=== PATIENT | female | born 1965 | race Caucasian/White ===

== ENCOUNTER → 2025-04-24 | Outpatient (CLI) | payer MEDICAID, SELFPAY ==
--- NOTE | 2025-04-24 | XR_ITS ---
Examination: Knee, right , 3 views Technique: Knee AP, lateral, oblique 3 views Date and time of exam: April 24, 2025, 0751 hours INDICATIONS: Patient fell 2 weeks ago with injury to the knee, knee pain. FINDINGS: Total knee arthroplasty. Satisfactory alignment. No acute fracture IMPRESSION: No acute fracture
--- NOTE | 2025-04-24 | XR_ITS ---
Examination: Sacrum and coccyx 3 views TECHNIQUE: AP, inclined AP, lateral sacrococcyx 3 views Date and time: April 28, 2025, 0753 hours INDICATIONS: Patient fell 2 weeks ago with injury to the sacrum, sacral pain. FINDINGS: Prominent osteopenia. Satisfactory alignment sacrococcygeal segments. No acute fracture IMPRESSION: No acute fracture
== END | disposition home or self-care (01) ==
LOC: CDIM 07:07
PROVIDERS: PCP Nurse Practitioner Family; Referring Provider Nurse Practitioner Family; Visit Provider Nurse Practitioner Family
DX: S89.91XA Unspecified injury of right lower leg, initial encounter (principal); S39.92XA Unspecified injury of lower back, initial encounter; W01.0XXA Fall on same level from slipping, tripping and stumbling without subsequent striking against object, initial encounter
CPT/HCPCS: 72220; 73562

== ENCOUNTER 2025-06-03 11:02 | Emergency (ER) | payer MEDICAID, SELFPAY ==
[2025-06-03 11:46] VITALS: BP 136/85; PULSE 101; RESP 18; TEMP 36.7; O2SAT 99; BMI 21.4
--- NOTE | 2025-06-03 11:49 | XR_ITS ---
Examination: Foot, right, 3 views Technique: AP, oblique, lateral views foot, 3 views Date and time of exam: 06/03/2025, 12:11 p.m. INDICATION: Right foot pain for 1 day after impacted by concrete block COMPARISON: None FINDINGS: Acute nondisplaced fracture of the distal metadiaphysis of the first metatarsal is present. No apparent fracture elsewhere. Normal variant bipartite medial sesamoid bone subjacent to the first metatarsal head. No dislocation. Mild hallux valgus. Otherwise, no significant degenerative changes. 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 Forefoot soft tissue swelling. No radiodense foreign body. IMPRESSION: Acute nondisplaced fracture of the first metatarsal as described.
--- NOTE | 2025-06-03 12:43 | EDNOTE_ITS ---
<Statement entered by Karla Agarwal MD - 06/04/25 09:35> As co-signing physician, I was present and available for consult prn. I concur with the plan and care as documented by the midlevel provider. Lower Extremity Injury RME/HPI General Chief Complaint: Ankle/Foot Injury Stated Complaint: INJURY R) FOOT Time Seen by Provider: 06/03/25 11:26 Arrival date/time: 06/03/25 11:02 60-year-old female presents to the Emergency Department today stating that she dropped something heavy on the top of her right foot yesterday Limitations: no limitations Related Data Home Medications ?Medication ?Instructions ?Recorded ?Confirmed Levothyroxine * (SYNTHROID *) 100 mcg PO ACBR #0 tabs 01/29/16 gabapentin 600 mg tablet 600 mg PO BID ##0 02/14/17 (Neurontin) Buspirone * (BUSPAR *) 10 mg PO HS #0 tabs 08/10/17 albuterol sulfate 90 mcg/actuation 2 puff inhalation Q 6HR PRN 08/10/17 aerosol inhaler (Proventil HFA) WHEEZING #0 inhalation s Previous Rx's ?Medication ?Instructions ?Recorded hydrocodone 5 mg-acetaminophen 325 1 tab PO BID PRN pa in #10 tabs 06/03/25 mg tablet ibuprofen 600 mg tablet 600 mg PO Q6H #30 tabs 06/03 Allergies Allergy/AdvReac Type Severity Reaction Status Date / Time hydromorphone Allergy Severe TONGUE Verified 06/03/25 11:05 SWELLING AND ITICHING Review of Systems Review of Systems Systems Reviewed: All systems reviewed, normal except as documented Constitutional Constitutional: Reports system reviewed and no additional complaints, except as documented, Denies fever(s) and Denies headache(s) Eyes Eyes: Reports system reviewed and no additional complaints, except as documented and Denies blurry vision ENT Ears, Nose, Mouth, and Throat: Reports system reviewed and no additional complaints, except as documented, Denies headache(s), Denies nasal congestion and Denies nasal discharge Cardiovascular Cardiovascular: Reports system reviewed and no additional complaints, except as documented, Denies chest pain and Denies dyspnea Respiratory Respiratory: Reports system reviewed and no additional complaints, except as documented, Denies chest congestion, Denies cough and Denies dyspnea Gastrointestinal Gastrointestinal: Reports system reviewed and no additional complaints, except as documented and Denies abdominal pain Musculoskeletal Musculoskeletal: Reports system reviewed and no additional complaints, except as documented, Reports abnormal gait, Reports arthralgias, Denies deformity, Denies numbness, Denies stiffness and Denies tingling Integumentary/Breasts Skin/Breast: Reports system reviewed and no additional complaints, except as documented and Denies rash Neurologic Neurologic: Reports system reviewed and no additional complaints, except as documented, Reports as per HPI, Reports abnormal gait, Denies headache(s), Denies numbness and Denies tingling Past Medical History Past Medical History ENDOCRINE: Negative Diabetes Mellitus Type 2 Social History SMOKING STATUS: Current every day smoker ED Exam General Limitations: Present no limitations General appearance: Present alert and in no apparent distress Head Head exam: Present atraumatic Eye Eye exam: Present normal appearance, PERRL and EOMI ENT ENT exam: Present normal exam, normal oropharynx and mucous membranes moist Neck Neck exam: Present normal inspection, full ROM and trachea midline Chest Chest inspection: Present normal inspection and symmetric chest wall rise Respiratory Respiratory exam: Present normal lung sounds bilaterally Cardiovascular Cardiovascular exam: Present regular rate, normal rhythm and normal heart sounds Abdominal Exam Abdominal exam: Present soft and normal bowel sounds Extremities Exam Extremities exam: Present normal inspection and full ROM Back Exam Back exam: Present normal inspection and full ROM Neurological Exam Neurological exam: Present alert, oriented X3 and CN II-XII intact Psychiatric Psychiatric exam: Present normal affect and normal mood Skin Skin exam: Present warm, dry, intact and normal color Course Quality Measures none Orders Category Date Time Status Crutches .NOW Care 06/03/25 12:43 Completed Splint / Immobilizer STAT Care 06/03/25 12:43 Completed XR foot comp RT min 3V Stat Exams 06/03/25 11:49 Completed Vital Signs Vital signs: Vital Signs Temperature 98.1 F 06/03/25 11:46 Pulse Rate 101 H 06/03/25 11:46 Respiratory Rate 18 06/03/25 11:46 Blood Pressure 136/85 H 06/03/25 11:46 Pulse Oximetry (%) 99 06/03/25 11:46 Oxygen Delivery Method Room Air 06/03/25 11:46 O2 saturation 99% room air within normal limits Extremity Injury, Lower MDM Narrative MDM Narrative:: 60-year-old female presents to the Emergency Department today stating that she dropped something heavy on the top of her right foot yesterday On exam patient well-appearing patient does not appear ill or toxic patient does have mild bruising to the dorsal aspect of the right foot X-ray of the right foot obtained patient does have fracture right foot metatarsal Patient placed in a cast boot patient given crutches Patient dischargedfollow-up orthopedics as soon as possible for worsening symptoms return immediately Patient data External records reviewed:: [facility] previous records Clinical information provided by:: patient Social determinants that could affect healthcare access:: none Patient has the following chronic illnesses:: None How is presenting disease/condition affected by chronic disease/condition?: no chronic disease Evaluation data The following diagnostics were reviewed and interpreted by me:: radiology exam(s) Lab and/or radiology exams considered but not ordered:: Radiology obtain Interpretation Summary: Reviewed by me Medications / Prescriptions Medications or Prescriptions considered but not ordered:: Given Medication administrations:: Given Consultations Consultation(s) initiated? (list below): No Diagnosis Extremity Injury, Lower Differential Diagnosis: other (Foot sprain, foot fracture) Most likely diagnosis given after review of the tests above:: Foot contusion Admission Indicated Admission indicated?: not indicated Admission Request Was there a request for admission?: No Disposition Plan Disposition Plan: Discharge Discharge Attestation Discharge Attestation: The patient and all family members were given an opportunity to ask questions and understood the discharge instructions. Discharge instructions specifically effects, indications for sooner follow up or return to the emergency department, and the expected course of current diagnosis. Patient condition: Stable Discharge Plan Plan Patient Disposition: HOME (Self Care) Discharge Disposition comment: Stable Prescriptions/Referrals Prescriptions/Med Rec: New hydrocodone-acetaminophen 5-325 mg tablet 1 tab PO BID MDD 10 PRN (Reason: pain) Qty: 10 0RF ibuprofen 600 mg tablet 600 mg PO Q6H Qty: 30 0RF No Action Levothyroxine * (SYNTHROID *) 100 MCG tablet 100 mcg PO ACBR Qty: 0 gabapentin [Neurontin] 600 MG tablet 600 mg PO BID Qty: 0 Buspirone * (BUSPAR *) 10 MG tablet 10 mg PO HS Qty: 0 albuterol sulfate [Proventil HFA] 6.7 GM HFA aerosol inhaler 2 puff Inhalation Q6HR PRN (Reason: WHEEZING) Qty: 0 Referrals: Eli Rodriguez NP [Primary Care Provider] - 06/04/25 Problem List Clinical Impression: Fracture of right foot Patient/Caregiver Discharge Instructions Education Materials: ED Fracture, Foot Additional Instructions: Please follow up with your primary care doctor in the next 24-48hrs for any worsening symptoms return here immediately Print Language: Jordanian Stand Alone Forms: Sophie Award Info., Patient Portal Info Letter PA/MARKER ASSEMBLER Supervising Physician PA/MARKER ASSEMBLER Supervising Physician: Dr. agarwal
== END 2025-06-03 13:42 | disposition home or self-care (01) ==
PROVIDERS: Emergency Provider Nurse Practitioner Primary Care; PCP Nurse Practitioner Family
DX: S92.901A Unspecified fracture of right foot, initial encounter for closed fracture (principal); W22.8XXA Striking against or struck by other objects, initial encounter
CPT/HCPCS: 73630; 99282